=== PATIENT | male | born 1985 | race Caucasian/White ===

== ENCOUNTER 2025-02-26 17:40 | Emergency (ER) | payer OTHER ==
[~2025-02-26] VITALS: Ht 195.6 cm; Wt 93.0 kg
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
[2025-02-26 23:42] VITALS: BP 97/76; PULSE 95; RESP 16; TEMP 98.1; O2SAT 97
[2025-02-26] MEDS ORDERED: AMOX875T4 PO (23:53)
[2025-02-26] MEDS: TETANUS-DIPTH-ACEL PERTUSSIS 0.5ML SYR Tdap IM ONE (23:53)
[2025-02-26] MEDS ORDERED: ACET500T58 PO (23:53)
--- NOTE | 2025-02-27 01:08 | DVH ---
EXAMINATIONS: 3 views of the right knee CLINICAL HISTORY: right knee pain COMPARISON: None Findings and impression: No grossly displaced fractures or dislocations are evident on the provided views. Question small suprapatellar joint effusion which may be projectional. Sclerotic focus in the posterior aspect of the distal femoral diaphysis may reflect a bone island or possibly an ossified fibromatous lesion. If symptoms persist, follow-up MRI may be obtained to further evaluate. HS:Y
--- NOTE | 2025-02-27 01:21 | DVH ---
EXAMINATIONS: 3 views of the right foot CLINICAL HISTORY: right foot pain COMPARISON: None Findings and impression: Transverse linear lucency through the 5th distal phalanx. This may represent mildly displaced fractur e through a biphalangeal 5th toe versus normal triphalangeal anatomy. There are some sclerotic change s to the margins. Please correlate with physical examination. No other grossly displaced fractures or dislocations are evident on the provided views. HS:Y
== END 2025-02-27 01:49 | disposition home or self-care (01) ==
LOC: ER 17:40
DX: S83.8X1A Sprain of other specified parts of right knee, initial encounter (principal); S80.01XA Contusion of right knee, initial encounter; S90.31XA Contusion of right foot, initial encounter; S90.414A Abrasion, right lesser toe(s), initial encounter; X58.XXXA Exposure to other specified factors, initial encounter; Y93.89 Activity, other specified; Y92.89 Other specified places as the place of occurrence of the external cause; Y99.8 Other external cause status
CPT/HCPCS: 29505; 73562; 73630; 90471; 90715